=== PATIENT | female | born 1995 ===

== ENCOUNTER 2017-11-11 18:07 | Inpatient (IN) | payer OTHER ==
[~2017-11-11] VITALS: Ht 160 cm; Wt 84.4 kg
[2017-11-13] MEDS ORDERED: PRENATAL TABLE1 EAC1 PO (08:47)
== END 2017-11-14 11:02 | disposition home or self-care (01) | DRG 775 ==
LOC: LDR 18:07 → OB/GYN 18:07 → LDR 23:19 → OB/GYN 11-12 00:47
PROC: 10E0XZZ Delivery of Products of Conception, External Approach (ICD-10-PCS; principal; 2017-11-12)
PROC: 3E033VJ Introduction of Other Hormone into Peripheral Vein, Percutaneous Approach (ICD-10-PCS; 2017-11-12)
PROC: 4A1HXCZ Monitoring of Products of Conception, Cardiac Rate, External Approach (ICD-10-PCS; 2017-11-12)
DX: O80 Encounter for full-term uncomplicated delivery (principal); Z3A.38 38 weeks gestation of pregnancy; Z37.0 Single live birth